=== PATIENT | male | born 1950 | race Caucasian/White ===

== ENCOUNTER 2021-06-08 09:17 | Emergency (ER) | payer MEDICARE, OTHER, SELFPAY ==
[2021-06-08 09:19] VITALS: BP 150/96; PULSE 95; RESP 18; TEMP 36.7; O2SAT 95; BMI 29.1
--- NOTE | 2021-06-08 10:00 | CT_ITS ---
STUDY: CT ABDOMEN AND PELVIS WITHOUT CONTRAST REASON FOR EXAM: Male, 71 years old. Kidney Stone RADIATION DOSAGE (If Supplied By Facility): CTDIvol = ( 16.84 ) mGy, DLP = ( 845.63 ) mGycm TECHNIQUE: Transaxial 2.5 mm images were obtained from the dome of the diaphragm to the symphysis pubis without oral contrast, and without intravenous contrast. Sagittal and coronal images were reconstructed. This examination is limited for the evaluation of gastrointestinal, solid organs and vascular structures due to the lack of intravenous and oral contrast. Individualized dose optimization techniques were used for this CT. COMPARISON: None. FINDINGS: Emphysematous changes in the lung bases. The visualized portions of the heart are within normal limits. Normal liver. Normal gallbladder and extrahepatic biliary system. There is a benign calcified granuloma of the spleen. Normal pancreas. Normal bilateral adrenal glands. Bilateral perirenal stranding. 0.5 cm nonobstructing right inferior renal pole calculus. 4 mm nonobstructing left inferior pole and curvilinear 1.2 cm left upper pole calculus. There is no obstructive uropathy, obstructive renal or ureteral calculi. Normal visualized stomach. Normal small intestine. There is moderate amount of fecal material. There is no obstruction. There are multiple descending and predominantly sigmoid colonic diverticula consistent with diverticulosis. The appendix is visualized and appears normal. There is atherosclerosis of the abdominal aorta, greater branches and pelvic arteries without aneurysm or leak. Arteriomegaly of the bilateral common iliac arteries. Normal inferior vena cava. Normal retroperitoneum. Normal urinary bladder. There are prostatic calcifications. Normal abdominal wall. There are diffuse degenerative changes of the visualized lumbar spine, multilevel spinal canal and foraminal stenosis, grade 1 retrolisthesis L5 on S1. CT/Abdomen/Pelvis without Cont IMPRESSION: There is no obstructive uropathy, obstructive renal or ureteral calculi. Bilateral nonobstructing renal calculi in bilateral perirenal stranding. Atherosclerosis, degenerative changes, emphysema, colonic diverticulosis and retained fecal material felt to be nonacute findings. Electronically Signed: Venus Sridevi, MD at 10:41 EDT , Service support ,
--- NOTE | 2021-06-08 10:00 | EX.ED.DYSGE1 ---
HPI History of Present Illness Chief Complaint: Flank Pain Informant: patient and spouse/S.O. Narrative Narrative: 71-year-old male presents to the emergency room with left flank pain. He reports that last week he was having some discomfort in the left flank. On Tuesday he injured his back when he was changing a glass door. He states that the pain in his low back from that seem to get better yesterday but this flank pain is worsening. He states that it comes in waves. No prior history of ureterolithiasis. It is worse with movements. He denies any urinary symptoms. No fevers. He notes nausea when the pain is severe. [facility] Medical History (Updated 06/08/21 @ 12:[address] Ronen Alcaraz DO) Hypertension Home Medications multivitamin,du-kkxp-ipifqltt [Therems-M] 1 tab PO DAILY 11/05/13 [History Last Taken Unknown] aspirin 81 mg PO DAILY@0800 10/14/14 [History Last Taken Unknown] cholecalciferol (vitamin D3) [Vitamin D3] 2,000 unit PO DAILY 10/14/14 [History Last Taken Unknown] hydrocodone-acetaminophen 1 - 2 tab PO Q4H PRN PRN #20 tablet 10/14/14 [Rx Last Taken Unknown] ibuprofen 400 mg PO Q4H PRN PRN 10/14/14 [History Last Taken Unknown] ipratropium-albuterol [Combivent Respimat Inhal [place]] 1 puff INHALATION 4X/DAY 10/14/14 [History Last Taken Unknown] minocycline 100 mg PO DAILY 10/14/14 [History Last Taken Unknown] hydrocodone-acetaminophen 1 tab PO Q6H PRN PRN 3 Days #12 tablet 06/08/21 [Rx Last Taken Unknown] ondansetron 4 mg PO Q6H PRN PRN #15 tab 06/08/21 [Rx Last Taken Unknown] Allergy/AdvReac Type Severity Reaction Status Date / Time itraconazole [From Sporanox] Allergy Itching Verified 06/08/21 09:18 Social History (Updated 06/08/21 @ 10:[address] Ronen Alcaraz, ) Smoking Status: Unknown if ever smoked substance use type: does not use ROS ROS ED Constitutional Constitutional ED: Denies chills or weight loss Eyes Eyes: Denies change in vision or diplopia ENT ENT ED: Denies ear pain, rhinorrhea or sore throat Cardiovascular Cardiovascular: Denies chest pain, orthopnea, palpitations or racing heartbeat Respiratory/Chest Respiratory/Chest: Denies cough, dyspnea or orthopnea Gastrointestinal Gastrointestinal: Reports nausea; Denies abdominal pain, diarrhea or vomiting Genitourinary Genitourinary ED: Denies dysuria, hematuria or urinary frequency Musculoskeletal Musculoskeletal: Reports back pain; Denies arthralgias or myalgias Integumentary Denies abscess or rash Neurologic Neurologic: Denies headache(s) or weakness Psychiatric Psychiatric: Denies anxiety, depression, suicidal ideation or suicidal thoughts Endocrine Endocrinology: Denies polydipsia, polyphagia or polyuria Allergic/Immunologic Allergic/Immunologic ED: Denies mouth swelling, tongue swelling or urticaria EXAM Physical Exam Const Vital Signs: 06/08/21 09:19 06/08/21 10:11 Temperature 98.1 F Temperature Source Temporal Pulse Rate 95 Respiratory Rate 18 Respiratory Effort Normal Non-Labored Respiratory Pattern Normal Blood Pressure 150/96 H Blood Pressure Mean 114 Pulse Ox 95 Oxygen Delivery Method Room Air Positive well nourished and well developed General Appearance ED: well developed HEENT Reports normocephalic, head/scalp atraumatic and moist mucous membranes Eyes PERRL and EOMs intact bilaterally Neck no lymphadenopathy, supple and no JVD Resp normal respiratory effort and clear to auscultation bilaterally Cardio regular rate, regular rhythm and no murmurs GI normal to inspection, nondistended, normoactive bowel sounds and non-tender Palpation: soft Back/Spine normal ROM General Back: CVA tenderness left Extremity normal to inspection General Extremety ED: Negative for edema General Extremity: Negative for edema Neuro oriented x3 and CN's II-XII intact bilaterally Sensorium / Orientation: alert Motor Exam: strength 5/5 throughout Psych mental status grossly normal Mood & Affect: Negative for depressed or tearful Skin no rashes or lesions noted and no wounds MDM MDM MDM Narrative Medical decision making narrative: Basic blood work negative. His urine specimen does not show any overt infection or hematuria. CT then pelvis demonstrates bilateral renal stones but no obvious acute process to explain his pain. Patient received a dose of Toradol and Zofran. I can write for him to have some pain and nausea medication at home. Continue to observe this if is not improving have him follow-up with his primary care doctor return if worsening. Lab Data Attestation: I reviewed the patient's lab results. Labs: Laboratory Results - last 24 hr 06/08/21 06/08/21 06/08/21 09:42 09:42 11:30 WBC 9.2 RBC 4.85 Hgb 16.2 Hct 47.9 MCV 98.8 H MCH 33.4 H MCHC 33.8 RDW Std Deviation 55.1 H RDW Coeff of Mike 15.0 H Plt Count 260 MPV 10.0 Immature Gran % (Auto) 0.300 Neut % (Auto) 61.7 Lymph % (Auto) 27.7 [place] % (Auto) 9.3 Eos % (Auto) 0.7 Baso % (Auto) 0.3 Absolute Neuts (auto) 5.7 Absolute Lymphs (auto) 2.55 Nucleated RBC % 0 Sodium 139 Potassium 4.1 Chloride 105 Carbon Dioxide 29.0 Anion Gap 5 BUN 8 Creatinine 0.76 Estim Creat Clear Calc 70.97 Est GFR (MDRD) Af Amer 131 Est GFR (MDRD) Non-Af 108 BUN/Creatinine Ratio 10.6 Glucose 118 H Calcium 9.0 Urine Color Yellow Urine Clarity Sl. Cloudy Urine pH 7.0 Ur Specific [place] 1.010 Urine Protein Negative Urine Glucose (UA) Normal Urine Ketones Negative Urine Occult Blood Negative Urine Nitrite Negative Urine Bilirubin Negative Urine Urobilinogen Normal Ur Leukocyte Esterase 25 H Urine RBC 0 SEEN Urine WBC 0-5 SEEN Ur Squamous Epith Cells 0 SEEN Amorphous Sediment 2+ Urine Bacteria RARE Urine Mucus 0 SEEN Radiography Diagnostic Testing: Radiology Impression Abdomen/Pelvis CT 06/08/21 10:00 IMPRESSION: There is no obstructive uropathy, obstructive renal or ureteral calculi. Bilateral nonobstructing renal calculi in bilateral perirenal stranding. Atherosclerosis, degenerative changes, emphysema, colonic diverticulosis and retained fecal material felt to be nonacute findings. Electronically Signed: Venus Laureano MD at 10:41 EDT , Service support , Discharge Plan Triage Chief Complaint: Flank Pain ED Provider: Ronen Alcaraz Dx/Rx/DC Orders Clinical Impression: Acute left flank pain Instructions: ED Flank Pain, Uncertain Cause Prescriptions: New hydrocodone-acetaminophen [hydrocodone-acetaminophen] 1 TABLET tablet 1 tab PO Q6H PRN PRN (Reason: Pain) 3 Days Qty: 12 RF: 0 ondansetron [ondansetron] 4 MG tablet 4 mg PO Q6H PRN PRN (Reason: Nausea) Qty: 15 RF: 0 No Action multivitamin,gy-bmln-ljomrled [Therems-M] 1 TABLET tablet 1 tab PO DAILY RF: 0 minocycline 100 MG capsule 100 mg PO DAILY RF: 0 ibuprofen 400 MG tablet 400 mg PO Q4H PRN PRN (Reason: Pain) RF: 0 aspirin 81 MG tablet,chewable 81 mg PO DAILY@0800 RF: 0 cholecalciferol (vitamin D3) [Vitamin D3] 1,000 UNIT tablet 2,000 unit PO DAILY RF: 0 ipratropium-albuterol [Combivent Respimat] 1 PUFF inhaler 1 puff inhalation 4X/DAY RF: 0 hydrocodone-acetaminophen 1 TABLET tablet 1 - 2 tab PO Q4H PRN PRN (Reason: Pain) Qty: 20 RF: 0 Primary Care Provider: Jania Bear Referrals: Jania Bear MD [Primary Care Provider] - 3-5 Days if not improving Disposition Disposition: Home, Self Care
[2021-06-08] MEDS: Ketorolac 30 MG/ML Syringe IV (10:10)
[2021-06-08] MEDS: Ondansetron 4 MG/2 ML Vial IV (10:10)
[2021-06-08 10:14] LABS: Absolute Lymphocyte Count 2.55 X10^3/uL (0.83-4.51); Absolute Neutrophil Count 5.7 X10^3/uL (2.0-7.7); Basophil# 0.03 X10^3/uL; Basophil% 0.3 % (0-1); Eosinophil# 0.06 X10^3/uL; Eosinophils% 0.7 % (0-5); Hematocrit 47.9 % (40-54); Hemoglobin 16.2 g/dL (13.0-16.5); Lymphocyte # 2.55 X10^3/ul (0.83-4.51); Lymphocyte % 27.7 % (19-41); Mean Corp Hgb Conc 33.8 g/dL (32-36); Mean Corpuscular Hgb 33.4 pg (27.0-32.0); Mean Corpuscular Volume 98.8 fL (80-94); Monocyte# 0.86 X10^3/uL; Monocyte% 9.3 % (0-10); NRBC Flagged by Analyzer 0 % (0-5); Neutrophil # 5.69 X10^3/uL (2.7-7.7); Neutrophil % 61.7 % (47-70); Platelet Count 260 K/mm3 (150-450); RBC Distribution Width SD 55.1 fl (35.1-43.9); Red Blood Count 4.85 M/mm3 (4.6-6.2); White Blood Count 9.2 K/mm3 (4.4-11.0)
[2021-06-08 10:19] LABS: Anion Gap 5 (5-15); BUN 8 mg/dL (7-18); BUN/Creat Ratio 10.6 RATIO (10-20); Chloride 105 mmol/L (98-107); Creatinine, Serum 0.76 mg/dL (0.70-1.30); EST Glomerular Filtration Rate 108 mL/min (>60); Est Glom Filt Rate - Afr Amer 131 mL/min (>60); Estimated Creatinine Clearance 70.97 ml/min; Glucose 118 mg/dL (74-106); Potassium 4.1 mmol/L (3.5-5.1); Sodium Level 139 mmol/L (136-145)
[2021-06-08 11:38] LABS: Mucous, Urine 0 SEEN /hpf (<or=2+); Red Blood Cells-Urine 0 SEEN /hpf (0-5); Squamous Epithelial Cells - UA 0 SEEN /hpf (0-5)
[2021-06-08 11:45] LABS: Color, Urine Yellow (Yellow); Glucose, Dipstick Normal (Normal); Ketone-Dipstick Negative (Negative); Leukocyte Esterase-Dipstick 25 /ul (Negative); Nitrite-Dipstick Negative (Negative); Occult Blood-Urine Negative /ul (Negative); Protein-Dipstick Negative (Negative); Urine Bilirubin Dipstick Negative (Negative); Urine Clarity Sl. Cloudy (Clear); Urine Urobilinogen Normal (Normal)
[2021-06-08 11:55] LABS: Amorphous Sediment 2+; Bacteria RARE /hpf (None Seen); White Blood Cells 0-5 SEEN /hpf (0-5)
[2021-06-08 13:16] VITALS: BP 134/79; PULSE 84; RESP 20; O2SAT 97
--- NOTE | 2021-06-08 13:16 | ED.RN ---
THIS NURSE REVIEWED D/C INSTRUCTIONS WITH PT AND VISITOR. PT VERBALIZED UNDERSTANDING OF INSTRUCTIONS. IV D/C. IV CATHETER INTACT. PT TOLERATED WELL. PT DENIES FURTHER NEEDS OR QUESITONS AT THIS TIME
== END 2021-06-08 13:17 | disposition home or self-care (01) ==
PROVIDERS: Emergency Provider Emergency Medicine; PCP Internal Medicine
DX: R10.9 Unspecified abdominal pain (principal); R11.0 Nausea; N20.0 Calculus of kidney; I10 Essential (primary) hypertension; Z79.899 Other long term (current) drug therapy
CPT/HCPCS: 74176; 80048; 81001; 85025; 96374; 96375; 99283; A4216; J2405

== ENCOUNTER → 2025-02-19 | Outpatient (CLI) | payer MEDICARE, OTHER, SELFPAY ==
--- NOTE | 2025-02-19 06:54 | ECHOCS_ITS ---
Reason For Study Reason For Study: HTN Procedure This was a 2D Doppler, Color Flow transthoracic echocardiogram. The study was technically difficult. Due to body habitus and respiratory interference. Contrast injection was performed. Exam performed in department. Left Ventricle Normal LV size. The left ventricular ejection fraction is 55 %. No regional wall motion abnormalities noted. Right Ventricle Normal RV size. Normal systolic function. Atria Normal left atrium. Normal right atrium. Mitral Valve There is moderate mitral annular calcification. Tricuspid Valve Normal tricuspid valve. Aortic Valve Trisinus/trileaflet aortic valve. Pulmonic Valve Normal pulmonic valve. Great Vessels Normal aortic root. The pulmonary artery is normal size. Normal inferior vena cava. Pericardium/Pleural No pericardial effusion. MMode/2D Measurements & Calculations LVIDd: 5.0 cm IVSd: 1.1 cm Ao root diam: 4.0 cm LVIDs: 3.2 cm LVPWd: 0.96 cm RVDd: 3.7 cm FS: 35.9 % LAV(MOD-bp): 56.0 ml LVAd ap4: 38.1 cm2 LVAd ap2: 41.8 cm2 LAV(MOD-bp) Indexed: 26.8 ml/m2 LVLd ap4: 7.6 cm LVLd ap2: 8.1 cm LAV(MOD-sp2): 65.6 ml EDV(MOD-sp4): 157.6 ml EDV(MOD-sp2): 177.4 ml LAV(MOD-sp4): 46.7 ml EDV(sp4-el): 163.0 ml EDV(sp2-el): 183.0 ml LVAs ap4: 24.1 cm2 LVAs ap2: 25.5 cm2 LVLs ap4: 6.6 cm LVLs ap2: 6.5 cm ESV(MOD-sp4): 73.3 ml ESV(MOD-sp2): 81.8 ml ESV(sp4-el): 75.5 ml ESV(sp2-el): 84.9 ml EF(MOD-sp4): 53.5 % EF(MOD-sp2): 53.9 % EF(sp4-el): 53.7 % SV(MOD-sp4): 84.3 ml SV(MOD-sp2): 95.6 ml SV(sp4-el): 87.5 ml SI(MOD-sp4): 40.4 ml/m2 SI(MOD-sp2): 45.8 ml/m2 LA A4 area: 18.2 cm2 LA dimension(2D): 4.2 cm RA A4 area: 15.6 cm2 TAPSE: 3.3 cm Time Measurements MV dec time: 0.16 sec Doppler Measurements & Calculations MV E max juan carlos: 111.4 cm/sec Lat Peak E' Juan Carlos: 12.7 cm/sec Med Peak E' [place]: 9.8 cm/sec MV A max juan carlos: 98.7 cm/sec E/E' lat: 8.8 E/E' med: 11.4 MV E/A: 1.1 MV V2 max: 101.4 cm/sec MV P1/2t max juan carlos: 112.2 cm/sec Ao V2 max: 156.8 cm/sec MV max P.1 mmHg MV P1/2t: 81.0 msec Ao max P.8 mmHg MV V2 mean: 54.2 cm/sec Ao V2 mean: 97.8 cm/sec MV mean P.4 mmHg MV dec slope: 405.7 cm/sec2 Ao mean P.5 mmHg MV V2 VTI: 34.4 cm MVA(P1/2t): 2.7 cm2 Ao V2 VTI: 30.7 cm AV (velocity ratio): 0.78 LV V1 max: 120.3 cm/sec PA V2 max: 130.1 cm/sec LV V1 max P.8 mmHg PA V2 mean: 80.2 cm/sec PI dec slope: 112.1 cm/sec2 LV V1 mean P.9 mmHg PA V2 VTI: 23.5 cm LV V1 mean: 79.3 cm/sec LV V1 VTI: 24.1 cm ECHO/Echo Complete W/ Contrast Interpretation Summary Normal LV size. The left ventricular ejection fraction is 55 %. There is moderate mitral annular calcification. Contrast injection was performed. Ordering Physician: Martir Maria Referring Physician: Jania Bear Performed By: Kiara Londono, FLORINA, RVT
--- NOTE | 2025-02-19 06:55 | CDU_ITS ---
Reason For Study Reason For Study: AMAUROSIS FUGAX Rt. Velocities/BP Lt. Velocities/BP Prox CCA 72.1/13.8 cm/sec. Prox CCA 105.2/17.5 cm/sec. Mid CCA 57.8/14.9 cm/sec. Mid CCA 53.7/14.2 cm/sec. Dist CCA 60.0/16.0 cm/sec. Dist CCA 48.3/8.7 cm/sec. Prox ICA 54.8/15.3 cm/sec. Prox ICA 41.5/12.2 cm/sec. Mid ICA 33.9/11.2 cm/sec. Mid ICA 46.2/13.1 cm/sec. Dist ICA 40.9/13.9 cm/sec. Dist ICA 58.5/17.9 cm/sec. Rt. ICA/CCA = 0.9. Lt. ICA/CCA = 1.1. Prox ECA 76.5/8.4 cm/sec. Prox ECA 47.2/12.1 cm/sec. Rt. Vert. 35.7/10.4 cm/sec. Lt. Vert. 40.9/12.1 cm/sec. Right Extracranial There is heterogeneous, irregular atherosclerotic plaque noted in the right internal carotid artery. There is intimal thickening but no significant atherosclerotic plaque noted in the right external carotid artery. Antegrade flow is noted in the right vertebral artery. Left Extracranial There is no significant atherosclerotic plaque noted in the left common carotid artery. There is heterogeneous, irregular atherosclerotic plaque noted in the left internal carotid artery. There is heterogeneous, irregular atherosclerotic plaque noted in the left external carotid artery. Antegrade flow is noted in the left vertebral artery. Procedure Carotid Duplex 20367. This is a Carotid Duplex examination using B-mode, color flow and specral Doppler. The study was technically difficult. Carotid performed S/P echocardiogram with Definity use and respiratory interference. Exam performed in department. VL/Carotid Duplex Ultrasound Interpretation Summary Normal right extracranial internal carotid. Mild (<50%) stenosis left extracranial internal carotid. Patent and antegrade vertebrals bilaterally. Ordering Physician: Martir Maria Referring Physician: Jania Bear Performed By: Kiara Londono RDCS, RVT
== END | disposition home or self-care (01) ==
LOC: CVS 06:54
PROVIDERS: PCP Internal Medicine; Referring Provider Ophthalmology; Visit Provider Ophthalmology
DX: G45.3 Amaurosis fugax (principal)
CPT/HCPCS: 93306; 93880; Q9957; C8929

== ENCOUNTER → 2025-09-12 | Outpatient (CLI) | payer MEDICARE, OTHER, SELFPAY ==
--- NOTE | 2025-09-12 13:03 | PCM.CR.HP2 ---
CR - History & Physical General Arrival date:: 09/12/25 Arrival time:: 13:03 Date of Referral:: 07/05/25 Date of CR Evaluation:: 09/12/25 Referring Physician: Dr. Smith Primary Diagnosis: s/p CABG History of Present Cardiac Event Onset Date Coronary Artery Bypass Graft:: Yes (onset 07/15/25) Vessel: CHUNG-LAD, SVG-PDA Medications Ambulatory Orders ?Medication ?Instructions ?Recorded multivitamin,ks-gqsv-osbvqrsy 27 1 tab PO DAILY 11/05/13 mg-0.4 mg tablet (Therems-M) aspirin 81 mg chewable tablet 81 mg PO DAILY@0800 10/14/14 cholecalciferol (vitamin D3) 25 2,000 unit PO DAILY 10/14/14 mcg (1,000 unit) tablet (Vitamin D3) hydrocodone-acetaminophen 5-325mg 1 - 2 tab PO Q4H PRN PRN Pain ##20 10/14/14 5mg-325mg ibuprofen 400 mg tablet 400 mg PO Q4H PRN PRN Pain 10/14/14 ipratropium 20 mcg-albuterol 100 1 puff inhalation 4X/DAY 10/14/14 mcg/actuation mist for inhalation (Combivent Respimat) minocycline 100 mg capsule 100 mg PO DAILY 10/14/14 hydrocodone-acetaminophen 5-325mg 1 tab PO Q6H PRN PRN Pain 3 days 06/08/21 5mg-325mg #12 TABLETS ondansetron 4 mg disintegrating 4 mg PO Q6H PRN PRN Nausea #15 tabs 06/08/21 tablet Allergies Allergies itraconazole (From Sporanox) Allergy (Verified 06/08/21 09:18) Itching Sleep Disorder Evaluation Hx of Sleep Apnea: Yes Do you snore loudly (louder than talking or can be heard through closed doors)?: No Do you often feel tired/ fatigued/ sleepy during daytime?: No Has anyone observed you stop breathing during sleep?: No History of Hypertension (for STOP score): Yes STOP Results: Negative Advanced Directives Advanced Directives Do you have a Healthcare Power of Well Logging Captain?: No Living Will: No Advance Directives Information Provided: No Advance Directives on File: No DNR Order?:: No Past Medical History Covid-19 Screening Physicial Symptoms Other Clinical Concerns Exposure Risk Pertinent Comorbidities 65 years or older:: Yes Has a chronic lung disease or moderate to severe asthma:: Yes Has a serious heart condition:: Yes Past Medical Illness Past Medical History (Updated 06/08/21 @ 12:[address] Ronen Alcaraz, DO) Hypertension I10 Social History Smoking History Smoking Status: Former smoker Years Smokin Packs Smoked per Day: 2.5 (stopped in 1993) Alcohol Use Alcohol Usage: No Occupation Occupation (List type of work in comments):: Employed Hours worked per day:: 4 Social Environment Status Marital Status: Current Living Arrangements Living Environment:: Spouse Children How many children do you have?: 1 Do any of your children live nearby?: Yes Assistance Do you need any assistance at home?: no Review of Systems Review of Systems Hints Review of Present Symptoms: Reports Shortness of Breath with Exertion, Appetite - Normal, Appetite - Special Diet and Sleep - Normal; Denies Shortness of Breath at Rest, PVD, Operative Discomfort, Angina, Wound Healing, Dizziness/Lightheadedness, Fatigue, Heart Arrhythmia/Irregularities or Sexual Changes Pain Is Patient Pain Free?: No Pain Location: upper extremity and lower extremity Pain Level: 01/10 Risk Factor Assessment Chief Complaint Chief Complaint: s/p CABG Vital Signs Pulse Ox: 99 Blood Pressure: 108/76 Pulse Pulse Rate: 88 Hypertension Blood Pressure Sitting - Right Arm: 108/76 Obesity Height: 5 ft 10 in Weight:: 193 lb Weight in Pounds: 193.0 lbs Body Mass Index (BMI): 27.6 Physical Inactivity Physical Inactivity: Reg Exercise 30 min/day Risk Stratification Risk Guidelines: Moderate Risk: Risk Factor for Smoking, Risk Factor for Dyslipidemia, Risk Factor for Diabetes, Risk Factor for Obesity, Risk Factor for Sedentary Lifestyle and Risk Factor for Depression and Highest Risk: Risk Factor for Hypertension For Smoking Smoking Risk Guidelines For Dyslipidemia Dyslipidemia Risk Guidelines For Diabetes Mellitus Diabetes Risk Guidelines For Obesity/Overweight Obesity/Overweight Risk Guidelines For Hypertension Hypertension Risk Guidelines For Sedentary Lifestyle Sedentary Lifestyle Risk Guidelines For Depression Depression Risk Guidelines Motivation Motivation to Participate On a scale of 1 to 10, how prepared are you to commit to attending program?: 8 What do you see as barriers to successfully being able to complete the program?: nothing What do you see as the benefits of succesfully completing the program? In other words, what do you hope to get out of participating in the program?: Energy Are there issues you are dealing with that will interfere with completing the program?: no Do you have a spouse or signficant other, family or friends who will help support you to complete the program?: yes
[2025-09-12 13:14] VITALS: BP 108/76; PULSE 88; O2SAT 99; BMI 27.6
--- NOTE | 2025-09-12 13:57 | CR.ITP_ITS ---
Diagnosis General Information Admitting Diagnosis: S/P CABG Personal Learning Style:: Audio/Visual Barriers to Learning: No Barriers Stage of change r/t lifestyle modifications:: Contemplation Gave educational material for:: Treating Heart Disease, How The Heart Works, What it means to have Heart Disease, How Coronary Artery Disease is Diagnosed, Heart Procedures, What Heart Medications Do, Risk Factors & Modifications, Living an Active Life, Nutrition, Emotions & Heart Disease, Stress Management & Relaxation and Sleep Disorders & Heart Disease Education/Goals Cardiac Rehabilitation Goals Personal Goals: Initial Assessment: Improve energy level, Get back to work, or to resume activities faster and Improve muscle strength and endurance Scale for measuring improvement of personal goals Diagnosis & Disease Process Outcomes/Goals: Pt IDs own risk factors & lifestyle modifications by Session 10, Verbalizes symptoms of angina & response by session 3., Pt independently manages and Other Additional Outcomes/Goals: Plan/Interventions: Assist Pt to ID & engage in lifestyle modification to reduce CVD risk, Instruct on individual risk factors, Review symptoms of angina & emergency actions, Review secondary diagnosis & identify educational needs. and Other see comment 30 day Reassessments:: Not Met 30 day Reassessments:: Not Met 30 day Reassessments:: Not Met 30 day Reassessments:: Not Met Safety Referral to Physical Therapy: No Referral to [facility] Case Management: No Fall Risk Assessed:: Yes Assistive Devices:: None Exercise - Initial Assessment Visit Date of Eval: 09/12/25 (initial eval) Mets: Pre-: >3 METS for 30 minutes by discharge, >5 METS for 30 minutes by discharge, >7 METS for 30 minutes by discharge and Unable to meet goal due to: (see comment below) Physician Prescribed Exercise Modalities: Treadmill, Schwinn Airdyne AD-7, SciFit Stepper, [employer]Med SystemsFit Pro-II Ergometer and TransMed SystemsFit Lateral [employer] Operator Frequency: 3x/week for 12 weeks [36 sessions] Intensity: 60-80% of age predicted maximum heart rate reserve Duration: 30 - 45 minutes Current METSs:: 3 Target Heart Rate:: 88-110 Resting Blood Pressure: 108/76 EKG Type: St w/PAC w/abberrant conduction RBBB Outcomes & Goals Goals:: Verbalizes understanding of THR, RPE & goal METS by session 6, Documents in home exercise log/reports 30 min aerobic 5 day/wk by DC, Demonstrates accurate pulse taking by DC and Other additional outcome/goals: see below Intervention & Plan Exercise Program Goals: Instruct on personal THR & RPE, Instruct on MET level & personal MET goal, Show patient to take own pulse /validate performance until accurate, Instruct on home exercise and Other additional plan/int Physical Activity Home Exercise Physical Activity - Home Exercise: Safe Exercise, Warm-up, Self-monitoring, Cool-Down, Home Exercise > 30 min Daily and Sitting Time <3 hours/daily Outcomes & Goals Outcomes/Goals: Demonstrates correct Warm-up/exercise Cool-Down (S3) if = 2.5 METs, Verbalizes symptoms of exercise intolerance by Session 3 (S3), Demonstrate safe equipment use (S3) & follows exercise prescrition (6) and Other: See below Intervention & Plan Plan/Intervention: Instruct warm-up & cool-down if exercising at > 2 METs, Instruct on symptoms of exercise intolerance & actions to take, Instruct & monitor on saf, Assess intial functional capacity & safety risk and Other See below Nutrition - Initial Assessment Program Goals Nutrition Program Goals Patient has diagnosis of Hyperlipidemia (ICD E78)?: No Visit Date of Eval: 09/12/25 (initial eval, Nutrition survey score of 2) Cholesterol/Lipids (Other Core Measures) Determine presence & major risk factors that modify LDL goal: Cigarette smoking, Hypertension or hypertensive medication, Low HDL cholesterol <40 mg/dL*, Family history of premature CHD in Male < 55 years: female <65 yearsFa and Age men > 45 years; women >/= 55 years Outcomes/Goals: Pt IDs own risk factors & lifestyle modifications by Session 10, Verbalizes symptoms of angina & response by session 3., Pt independently manages and Other Additional Outcomes/Goals: Intervention/Plan: Advocate for lipid panel cholesterol medication if applicable, Instruct on personal lipid levels & lipid goals/NCEP guidelines, Instruct on cholesterol and Other additional plan/int Diabetes (Other Core Measures) Diabetes Type: Not Applicable Weight Mgt (Other Care) Not Applicable: Yes Height: 5 ft 10 in Weight:: 193 lb BMI: 27.6 Diagnosis Overweight/Obesity BMI> 30% ICD-10 E66: No Diagnosis High BMI/Morbid Obesity BMI> 35% ICD-10 Z68: No Outcomes/Goals: Pt sets, maintains & shows weight loss goal & trend during rehab and Other additional outcomes/goals Intervention/Plan: Instruct on ideal BMI & set weight loss goal w/patient, Assist pt to ID & incorporate diet changes for weight loss by S9, Refer to Structured Weight Loss program as appropriate, Encourage goal of using 250- 300dcal per session for weight loss and Other additional plan/interventions Healthy Eating Habits Will attend diet classes:: Yes Outcomes/Goals:: Consume diet rich in vegs,fruits,whole grain/high fiber,fish,lean meat, Limit sat/trans fats,cholesterol & added salts & sugars and Other additional outcome/goals: Intervention/Plan:: Assess current eating habits and Other Additional plan/interventions Education Gave educational materials for:: Signs & symptoms of hypoglycemia, Signs & symptoms of hyperglycemia, Relate diabetes to coronary artery disease and H ealthy eating Core - Initial Assessment Visit Date of Eval: 09/12/25 (initial eval) Medication Compliance Preventative Medication(s):: Aspirin, Clopidogrel/P2Y12 inhibit and Beta callie H/O mental health issues: depression, anxiety, or addiction?: No Doesn?t believe in the benefits of treatment?: No Believes medications are unnecessary or harmful?: No Has a concern about medication side effects?: No Expresses concern over the cost of medications?: No Outcomes/Goals: Verbalizes medications,desired effect & common side effects @ DC, Pt self-reports following medication regimen, Keeps card in wallet w/medications listed by DC and Other additional outcome/goals: Interventions/plans: Instruct on medication effects & side effects, Review medication list w/patient every two weeks, Instruct importance of taking meds as ordered & assist problem solving and Other additional Tobacco Use Tobacco Use: Non-smoker How long ago did you quit using tobacco products?: Greater than or equal to 6 months ago How many cigarettes do you smoke per day?: 50 Years Smokin (stopped in 1993) Outcomes/Goals: Smoking cessation achieved or maintained by discharge, Identify aids/strategies for achieving smoking cessation by session 6 and Other additional outcome/goals Interventions/plan: Instruct on effects of smoking & provide smoking cessation resource, Assist pt to set quit date & provide encouragement, Assist pt to develop strategies to achieve/maintain quit date, Assist pt w/nicotine replacement & medication for cessation success and Other additional plan/interventions Hypertension Hypertension Diagnosis:: Hypertension ICD-10 I10 Resting Blood Pressure:: 108/76 [place] [employer] Hypertension Guidelines Outcomes/Goals: Able to verbalize/achieve optimal blood pressure <130/80, Incorporates diet changes & exercise for blood pressure control by DC and Other additional outcomes/goals Interventions/plan: Instruct on optimal blood pressure, hypertension & medications, Instruct on effects of sodium, alcohol, stress, exercise &hypertension and Other additional plan/interventions Tobacco Cessation Referral Smoking Cessation Referral:: No Individual Education/Counseling:: No Education Schedule Given:: Yes Psychosocial - Initial Assess VIsit Date of Eval: 09/12/25 (initial eval) Not Applicable: Yes History of previous Mental disease:: No Psychosocial Test Tool Used:: [employer] QOL Cardiac and PHQ-9 Questionnaire phq-9 Severity See PHQ-9 Score: 5 Referral to Behavioral Health PS - Interventions: Yes: Attend Stress Management Classes Outcomes/Goals: See list Psychosocial Outcomes/Goals:: ID's personal stressors & 2 strategies to manage stress by discharge and Other Additional outcome/goals: Intervention/Plan: See List Interventions/Plan:: Assess stressors,coping strategies & signs of derpression on admission, Instruct/assist pt to develop coping & personal stress Mgt strategies, Refer to Behavioral Health if appropriate, Refer to Physician if appropriate, Instruct patient to recognize signs & symptoms of depression, Instruct patient to recog and Other additional plan/intervention Exercise - 30-day Assessment Physician Prescribed Exercise Modalities: Treadmill, Schwinn Airdyne AD-7, SciFit Stepper, SciFit Pro-II Ergometer and SciFit Lateral [place] Exercise - 60-day Assessment Physician Prescribed Exercise Modalities: Treadmill, [employer]inn Airdyne AD-7, SciFit Stepper, SciFit Pro-II Ergometer and SciFit Lateral Nuclear Station Operator Exercise - 90-day Assessment Physician Prescribed Exercise Modalities: Treadmill, Schwinn Airdyne AD-7, SciFit Stepper, SciFit Pro-II Ergometer and SciFit Lateral [employer] Station Operator Exercise - Final/Discharge Physician Prescribed Exercise Modalities: Treadmill, Schwinn Airdyne AD-7, SciFit Stepper, SciFit Pro-II Ergometer and SciFit Lateral [place] Frequency: 3x/week for 12 weeks [36 sessions] Intensity: 60-80% of age predicted maximum heart rate reserve Current METSs:: 3 Target Heart Rate:: 88-110 Nutrition - 30-Day Assessment Weight Mgt (Other Care) Height: 5 ft 10 in Weight:: 193 lb BMI: 27.6 Nutrition - 60-Day Assessment Weight Mgt (Other Care) Height: 5 ft 10 in Weight:: 193 lb BMI: 27.6 Core - 30-Day Assessment Tobacco Use Years Smokin (stopped in 1993) Core - Final Assessment Hypertension Resting Blood Pressure:: 108/76 [place] [employer] Hypertension Guidelines Core - 60-Day Assessment Hypertension Resting Blood Pressure:: 108/76 [place] [employer] Hypertension Guidelines Psychosocial - 30-Day Assess Referral to Behavioral Health PS - Interventions: Yes: Attend Stress Management Classes Psychosocial - 60-Day Assess Referral to Behavioral Health PS - Interventions: Yes: Attend Stress Management Classes Psychosocial - 90-Day Assess Referral to Behavioral Health PS - Interventions: Yes: Attend Stress Management Classes Psychosocial - Final Assessmen Psychosocial Test phq-9 Severity See PHQ-9 Score: 5 Referral to Behavioral Health PS - Interventions: Yes: Attend Stress Management Classes Nutrition - 90-Day Assessment Weight Mgt (Other Care) Height: 5 ft 10 in Weight:: 193 lb BMI: 27.6 Nutrition - Final Assessment Program Goals Patient has diagnosis of Hyperlipidemia (ICD E78)?: No Weight Mgt (Other Care) Height: 5 ft 10 in Weight:: 193 lb BMI: 27.6
[2025-09-12 14:05] VITALS: BP 108/76; BMI 27.6
== END | disposition home or self-care (01) ==
PROVIDERS: PCP Internal Medicine; Referring Provider Thoracic Surgery (Cardiothoracic Vascular Surgery); Visit Provider Thoracic Surgery (Cardiothoracic Vascular Surgery)
DX: Z95.1 Presence of aortocoronary bypass graft (principal)

== ENCOUNTER 2025-10-02 10:15 | Outpatient (RCR) | payer MEDICARE, OTHER, SELFPAY ==
[2025-09-12 14:05] VITALS: BMI 27.6
== END 2025-10-02 23:59 ==
LOC: CR 10:15
PROVIDERS: PCP Internal Medicine; Referring Provider Thoracic Surgery (Cardiothoracic Vascular Surgery); Visit Provider Thoracic Surgery (Cardiothoracic Vascular Surgery)
DX: Z95.1 Presence of aortocoronary bypass graft (principal)
CPT/HCPCS: 93798